=== PATIENT | female | born 1945 ===

== ENCOUNTER 2023-05-18 14:34 | Outpatient (REF) | payer MEDICAID, SELFPAY ==
--- NOTE | 2023-05-18 15:25 | MHC.AU.HA3 ---
Hearing Instrument Follow-Up- Binaural Date of Visit: 05/18/23 Right Ear: Yinka, Model, Color, Serial Number: Oticon more 2 miniRITE-R SN: [id number] Head [employer] Assistant Teacher Repair Warranty: 01/31/2025 [employer] Assistant Teacher Loss and Damage Warranty: 01/31/2025 Battery Size: Rechargeable Merchandise Distributor/Slim Tube: 2/85 Earmold/Dome/CShell/SlimTip:6mm open dome Type of Wax Guard: miniFit Dispensed By: [facility] Date of Fittin01/01/2022 Left Ear: Yinka, Model, Color, Serial Number: Oticon more 2 miniRITE-R SN: [id number] [employer] Start Assistant Teacher Repair Warranty: 01/31/2025 [employer] Start Assistant Teacher Loss and Damage Warranty: 01/31/2025 Battery Size: Rechargeable Merchandise Distributor/Slim Tube: 2/85 Earmold/Dome/CShell/SlimTip: 6mm open dome Type of Wax Guard: miniFit Dispensed By: [facility] Date of Fittin01/01/2022 Follow-Up Summary: Radha was a previous patient at the audiology clinic at [facility]. She has decided to transfer care here. Her records have been requested from [facility]. Radha reported that her hearing aids have recently sounded weak and she is having more difficulty hearing speakers if they are at a distance or in background noise. Data logging showed about 13 hours of use per day. Increased soft and moderate sounds and adjusted noise management settings. Also reinstructed on volume control use. Radha noted improvement in office. She will be traveling to [place] for the next 6 month; however, recommended updated audiogram with subsequent reprogramming when she returns. Recommendations: Hearing instrument follow-up or maintenance as needed. Recommendations (Other): Radha will contact her PCP for doctor's order for a hearing test when she returns from traveling next year. Diagnosis Code(s): H90.3 Bilateral Sensorineural Hearing Loss Signature: Provider: Gautam Fernández, [facility]
== END 2023-05-18 14:35 | disposition home or self-care (01) ==
LOC: HO.HAP 14:34
PROVIDERS: PCP Student in an Organized Health Care Education/Training Program; Visit Provider Student in an Organized Health Care Education/Training Program
DX: Z46.1 Encounter for fitting and adjustment of hearing aid (principal); H90.3 Sensorineural hearing loss, bilateral
CPT/HCPCS: 92593; 99499

== ENCOUNTER 2024-02-21 07:54 | Outpatient (REF) | payer MEDICAID, SELFPAY ==
--- NOTE | ~2024-02-21 | XR_ITS ---
EXAMINATION: XR LUMBAR SPINE XR PELVIS CLINICAL INFORMATION: Low back pain. TECHNIQUE: AP view of the pelvis. 3 views of the lumbar spine. COMPARISON: None available. FINDINGS: AP PELVIS: The bones are diffusely demineralized. Moderate degenerative changes in the bilateral sacroiliac joints and bilateral hips. Vascular calcifications. Large amount of stool in the overlying bowel. LUMBAR SPINE: Slight leftward curvature of the zwa-ov-xxeyi lumbar spine. Surgical clips in the right upper quadrant. Facet arthritis in the lower lumbar spine. Moderate multilevel lumbar spondylosis with loss of disc space height notable at L4-L5. XR/XR pelvis 1-2V IMPRESSION: 1. Moderate degenerative changes in the bilateral sacroiliac joints and bilateral hips. 2. Moderate multilevel lumbar spondylosis with loss of disc space height notable at L4-L5.
--- NOTE | ~2024-02-21 | XR_ITS ---
EXAMINATION: XR LUMBAR SPINE XR PELVIS CLINICAL INFORMATION: Low back pain. TECHNIQUE: AP view of the pelvis. 3 views of the lumbar spine. COMPARISON: None available. FINDINGS: AP PELVIS: The bones are diffusely demineralized. Moderate degenerative changes in the bilateral sacroiliac joints and bilateral hips. Vascular calcifications. Large amount of stool in the overlying bowel. LUMBAR SPINE: Slight leftward curvature of the cqu-zw-povcf lumbar spine. Surgical clips in the right upper quadrant. Facet arthritis in the lower lumbar spine. Moderate multilevel lumbar spondylosis with loss of disc space height notable at L4-L5. XR/XR lumbar spine 2-3V IMPRESSION: 1. Moderate degenerative changes in the bilateral sacroiliac joints and bilateral hips. 2. Moderate multilevel lumbar spondylosis with loss of disc space height notable at L4-L5.
== END 2024-02-21 07:55 | disposition home or self-care (01) ==
LOC: HO.HOSX 07:54
PROVIDERS: Visit Provider Orthopaedic Surgery
DX: M25.552 Pain in left hip (principal); M25.551 Pain in right hip; M54.50 Low back pain, unspecified; M79.604 Pain in right leg
CPT/HCPCS: 72100; 72170; 99202

== ENCOUNTER 2024-02-21 10:02 | Outpatient (AMB) | payer MEDICAID, SELFPAY ==
--- NOTE | 2024-02-21 10:22 | MHC.OFFVIS ---
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 The patient also has intermittent pain along the posterior aspects of both of her hips. The patient did undergo low back surgery while living in [place] in 1982. The patient states that she has fallen 3-4 times over the last few months because of weakness in her right leg. The patient has done physical therapy exercises which aggravated her pain. She has also tried Tylenol and anti-inflammatory medicines which gave her minimal relief. Allergies No Known Allergies Allergy (Verified 02/21/24 10:35) Medication List - Last Reconciled 02/21/24 by Jon Morfin MD aspirin 81 mg PO DAILY glimepiride mg PO levothyroxine 25 mcg PO DAILY metformin ER 1,000 mg PO BID [facility] Surgical History (Updated 02/21/24 @ 10:37 by Ignacia Laguna CMA) History of cholecystectomy History of back surgery Physical Exam Const Other: Well-nourished well-developed very friendly female awake alert and oriented x3 in no acute distress Extrem Other: Bilateral lower extremity examination shows good capillary refill, no skin lesions noted, normal sensation light touch Low back examination shows bilateral paraspinal muscle tenderness, positive straight leg raise test on the right at 70 degrees, 4/5 strength with testing of her right hip flexors and knee extensors when compared to 5/5 strength on her left side Bilateral hip examination shows minimal discomfort with range of motion, no tenderness over her bursa, no overlying skin lesions Results Reviewed Results Reviewed: X-rays of the patient's bilateral hips taken today show mild to moderate joint space narrowing, no acute bony abnormalities X-rays of the patient's lumbar spine taken today show diffuse degenerative disc disease, no acute bony abnormalities Assessment & Plan Assessment & Plan (1) Low back pain radiating to right leg: Code(s): M54.50 - Low back pain, unspecified; M79.604 - Pain in right leg Category: Medical Plan Ms. Noble presents with progressively worsening low back pain which radiates down her right leg as well as associated right leg weakness most likely due to lumbar stenosis or a disc herniation. Thus, I order an MRI of the patient's lumbar spine for further evaluation. I will contact her by phone once the MRI results are available. She will call me prior to that time should her symptoms worsen in any way. Feel free to call me at any time should questions regarding her orthopedic management arise. I spent 22 minutes in reviewing the patient's records and imaging studies, seeing the patient and documenting in the medical record. Orders: Orders XR lumbar spine 2-3V Today M54.50 - Low back pain, unspecified XR pelvis 1-2V Today M25.551 - Pain in right hip, M25.552 - Pain in left hip MR lumbar spine wo con Today M54.50 - Low back pain, unspecified, M79.604 - Pain in right leg Coding Level of Care Code New Pt Level 2 (45735) Diagnoses Low back pain radiating to right leg M54.50; M79.604
== END 2024-02-21 10:57 | disposition home or self-care (01) ==
PROVIDERS: PCP Student in an Organized Health Care Education/Training Program; Visit Provider Orthopaedic Surgery
DX: M54.50 Low back pain, unspecified (principal); M79.604 Pain in right leg
CPT/HCPCS: 99202

== ENCOUNTER 2024-04-12 13:59 | Outpatient (REF) | payer MEDICAID, SELFPAY ==
--- NOTE | 2024-04-12 15:02 | MHC.AU.HA3 ---
Hearing Instrument Follow-Up- Binaural Date of Visit: 04/12/24 Right Ear: Make, Model, Color, Serial Number: Oticon more 2 miniRITE-R SN: [id number] Beck Tender Repair Warranty: 01/31/2025 Beck Tender Loss and Damage Warranty: 01/31/2025 [facility] Service Plan: Battery Size: Rechargeable Machine Shop Lead Man/Slim Tube: 2/85 Earmold/Dome/CShell/SlimTip:6mm open dome Type of Wax Guard: miniFit Dispensed By: [facility] Date of Fittin01/01/2022 Left Ear: Make, Model, Color, Serial Number: Oticon more 2 miniRITE-R SN: [id number] Beck Tender Repair Warranty: 01/31/2025 Beck Tender Loss and Damage Warranty: 01/31/2025 [facility] Service Plan: Battery Size: Rechargeable Machine Shop Lead Man/Slim Tube: 2/85 Earmold/Dome/CShell/SlimTip: 6mm open dome Type of Wax Guard: miniFit Dispensed By: [facility] Date of Fittin01/01/2022 Follow-Up Summary: Radha reports difficulty hearing at a distance over the last few months. Cleaned aids, replaced wax guards, changed domes, cleaned mics. Listening check OK. Otoscopy clear bilaterally. If issues persist, recommend updated hearing test. Follow up as needed. Recommendations: Recommendations: Hearing instrument follow-up or maintenance as needed. Diagnosis Code(s): Primary Diagnosis: H90.3 Bilateral Sensorineural Hearing Loss Signature: Provider: Nancy Wood, [facility]
== END 2024-04-12 14:00 | disposition home or self-care (01) ==
LOC: HO.HAP 13:59
PROVIDERS: Visit Provider Student in an Organized Health Care Education/Training Program
DX: Z46.1 Encounter for fitting and adjustment of hearing aid (principal); H90.3 Sensorineural hearing loss, bilateral
CPT/HCPCS: 92593; 99499

== ENCOUNTER 2024-04-17 13:13 | Outpatient (REF) | payer SELFPAY | END 2024-04-17 13:14 | disposition home or self-care (01) | LOC: HO.HAP 13:13 | PROVIDERS: Visit Provider Student in an Organized Health Care Education/Training Program | DX: Z46.1 Encounter for fitting and adjustment of hearing aid (principal) | CPT/HCPCS: V5267 ==

== ENCOUNTER 2024-04-27 10:01 | Outpatient (REF) | payer MEDICAID, SELFPAY ==
--- NOTE | 2024-04-27 14:02 | MHC.AU.HA3 ---
Hearing Instrument Follow-Up- Binaural Date of Visit: 04/27/24 Right Ear: Make, Model, Color, Serial Number: Oticon more 2 miniRITE-R SN: [id number] Creative Strategist Repair Warranty: 01/31/2025 Creative Strategist Loss and Damage Warranty: 01/31/2025 [facility] Service Plan: Battery Size: Rechargeable Acid Tester/Slim Tube: 2/85 Earmold/Dome/CShell/SlimTip:6mm open dome Type of Wax Guard: miniFit Dispensed By: [facility] Date of Fittin01/01/2022 Left Ear: Make, Model, Color, Serial Number: Oticon more 2 miniRITE-R SN: [id number] Creative Strategist Repair Warranty: 01/31/2025 Creative Strategist Loss and Damage Warranty: 01/31/2025 [facility] Service Plan: Battery Size: Rechargeable Acid Tester/Slim Tube: 285 Earmold/Dome/CShell/SlimTip: 6mm open dome Type of Wax Guard: miniFit Dispensed By: [facility] Date of Fittin01/01/2022 Follow-Up Summary: Here with son. Was here recently for maintenance, reports hearing well since then however, right aid turns off randomly. Cleaned and checked right aid, changed dome and wax guard. Listening check positive. Acid Tester is not intermittent. Genie shows rechargeable battery is at 75% functionality. Advised that we need to order replacement battery. Will order two and replace both. Recommendations: Recommendations: Patient will be contacted when materials have arrived. Recommendations (Other): Needs appointment to have rechargeable batteries replaced. Diagnosis Code(s): Primary Diagnosis: H90.3 Bilateral Sensorineural Hearing Loss Signature: Provider: Gautam Abebe, CCC-A
== END 2024-04-27 10:02 | disposition home or self-care (01) ==
LOC: HO.HAP 10:01
PROVIDERS: Visit Provider Student in an Organized Health Care Education/Training Program
DX: Z46.1 Encounter for fitting and adjustment of hearing aid (principal); H90.3 Sensorineural hearing loss, bilateral
CPT/HCPCS: 92592

== ENCOUNTER 2024-05-04 12:56 | Outpatient (REF) | payer MEDICAID, SELFPAY | END 2024-05-04 12:57 | disposition home or self-care (01) | LOC: HO.HAP 12:56 | PROVIDERS: Visit Provider Student in an Organized Health Care Education/Training Program | DX: Z13.89 Encounter for screening for other disorder (principal) ==

== ENCOUNTER 2025-05-27 13:50 | Outpatient (REF) | payer MEDICAID, SELFPAY ==
--- NOTE | 2025-05-27 14:18 | MHC.AU.HA3 ---
Hearing Instrument Follow-Up- Binaural Date of Visit: 05/27/25 Right Ear: Yinka, Model, Color, Serial Number: Oticon more 2 miniRITE-R SN: [id number] Addiction Therapist Repair Warranty: 01/31/2025 Addiction Therapist Loss and Damage Warranty: 01/31/2025 [facility] Service Plan: n/a Battery Size: Rechargeable Field Underwriter/Slim Tube: 2/85 Earmold/Dome/CShell/SlimTip:6mm open dome Type of Wax Guard: miniFit Dispensed By: [facility] Date of Fittin01/01/2022 Left Ear: Make, Model, Color, Serial Number: Oticon more 2 miniRITE-R SN: [id number] Addiction Therapist Repair Warranty: 01/31/2025 Addiction Therapist Loss and Damage Warranty: 01/31/2025 [facility] Service Plan: n/a Battery Size: Rechargeable Field Underwriter/Slim Tube: 2/85 Earmold/Dome/CShell/SlimTip: 6mm open dome Type of Wax Guard: miniFit Dispensed By: [facility] Date of Fittin01/01/2022 Follow-Up Summary: Here with her son. Reports trouble hearing at a distance or in groups, ongoing a few months. Cleaned hearing aids (2), replaced wax guards (2), replaced domes (2), [place] [id number] units. Listening check positive. Checked to see if firmware updated is needed, done; battery health is good. Recommended updated audiogram if concerns persist despite maintenance today as it has been 3.5 years, noting hearing aid adjustment may be needed if hearing has changed. Recommendations: Recommendations: Hearing instrument follow-up or maintenance as needed. Recommendations (Other): Contact PCP for order for hearing test. Diagnosis Code(s): Primary Diagnosis: H90.3 Bilateral Sensorineural Hearing Loss Signature: Provider: Gautam Abebe, [facility]
== END 2025-05-27 13:51 | disposition home or self-care (01) ==
LOC: HO.HAP 13:50
PROVIDERS: Visit Provider Student in an Organized Health Care Education/Training Program
DX: Z46.1 Encounter for fitting and adjustment of hearing aid (principal); H90.3 Sensorineural hearing loss, bilateral
CPT/HCPCS: 92593; 99499

== ENCOUNTER 2025-09-16 12:04 | Outpatient (REF) | payer SELFPAY | END 2025-09-16 12:05 | disposition home or self-care (01) | LOC: HO.HAP 12:04 | PROVIDERS: Visit Provider Student in an Organized Health Care Education/Training Program | DX: H90.3 Sensorineural hearing loss, bilateral (principal) | CPT/HCPCS: V5267 ==